=== PATIENT | female | born 1960 | race Two or more races ===

== ENCOUNTER 2024-04-11 07:35 | Day surgery (SDC) | payer OTHER ==
[2024-04-11] MEDS ORDERED: ONDANSETRON HCL 2 MG/ML VIAL IV ONE (13:00)
[2024-04-11] MEDS ORDERED: DIPHENHYDRAMINE HCL 50 MG/ML VIAL 1ML IV ONE (13:00)
[2024-04-11] MEDS ORDERED: MIDAZOLAM HCL 2 MG/2 ML VIAL IV ONE (13:00)
[2024-04-11] MEDS ORDERED: fentaNYL CITRATE 50 MCG/ML AMPUL IV PUSH ONE (13:00)
== END 2024-04-11 14:00 | disposition home or self-care (01) ==
LOC: AMB-ENDOS 07:35
PROVIDERS: ATTEND Colon & Rectal Surgery
DX: D12.2 Benign neoplasm of ascending colon (principal)